=== PATIENT | female | born 1985 | race African-American/Black ===

== ENCOUNTER 2016-04-26 13:28 | Emergency (ER) | payer OTHER ==
[~2016-04-26] VITALS: Wt 70.0 kg
[~2016-04-26 13:28] MED LIST: ALBU18HF INHALATION; AZIT250T94 PO; PRED20TA PO
[2016-04-26] MEDS ORDERED: LORA-186 PO (14:30)
[2016-04-26] MEDS ORDERED: IBUP-1542 PO (14:30)
[2016-04-26] MEDS ORDERED: PHEN118L PO (14:30)
--- NOTE | 2016-04-26 14:35 | ERD ---
ER Documentation Chief Complaint Date/Time DATE: 04/26/16 TIME: 14:34 Chief Complaint cough and sore throat for the past few days. HPI This is a 31-year-old female presenting to the emergency department planing of sore throat, cough, ear pain and feeling chills for the past 2 days. Patient states that is moderate in severity. She denies any chest pain or shortness of breath. Patient states that she has not tried any medications. ROS All systems reviewed and are negative except as per history of present illness. Medications Home Meds Active Scripts Phenylephrine/Diphenhydramine (DIMETAPP COLD & CONGEST LIQUID) 118 Ml Liquid, 5 ML PO Q4, #100 Prov:MILA HOWARD PA-C 04/26/16 Loratadine* (Claritin*) 10 Mg Tablet, 10 MG PO DAILY, #20 TAB Prov:MILA HOWARD PA-C 04/26/16 Ibuprofen* (Motrin*) 600 Mg Tab, 600 MG PO Q6H Y for PAIN AND OR ELEVATED TEMP, #30 TAB Prov:MILA HOWARD PA-C 04/26/16 Albuterol Sulfate* (Ventolin HFA*) 18 Gm Hfa.aer.ad, 2 PUFF INHALATION Q4H, #1 INHALER Prov:SANTHOSH SWENSON MD 11/04/15 Prednisone* (Prednisone*) 20 Mg Tab, 40 MG PO DAILY for 4 Days, TAB Prov:SANTHOSH SWENSON MD 11/04/15 Azithromycin* (Zithromax*) 250 Mg Tablet, 250 MG PO .ZPACK DIRECTED, #6 TAB TAKE 500 MG (2 TABS) THE FIRST DAY THEN 250 MG (1 TAB) DAYS 2-5 Prov:SANTHOSH SWENSON MD 11/04/15 Allergies Allergies: Coded Allergies: No Known Drug Allergies (Verified Allergy, Mild, 01/18/14) PMhx/Soc History of Surgery: No Anesthesia Reaction: No Hx Neurological Disorder: No Hx Respiratory Disorders: Yes (asthma) Hx Cardiac Disorders: No Hx Psychiatric Problems: No Hx Miscellaneous Medical Probl: No Hx Alcohol Use: No Hx Substance Use: No Hx Tobacco Use: No Physical Exam Vitals Vital Signs Date Time Temp Pulse Resp B/P Pulse Ox O2 Delivery O2 Flow Rate FiO2 04/26/16 13:37 98.8 85 20 146/62 98 Physical Exam GENERAL: well-developed/well-nourished, in no apparent distress, non-toxic appearing HEAD: NC/AT, no swelling noted in frontal or maxillary areas EARS: bilateral tympanic membrane is intact without erythema or effusion NARES: Rhinorrhea THROAT: oropharynx nonerythematous without exudates, no tonsil enlargement, post nasal drip EYES: Conjunctiva normal NECK: Supple, no lymphadenopathy PULM: CTA bilaterally, no rales, rhonchi, or wheezing heard CV: Normal S1S2, RRR, good capillary refill GI: Soft, non-distended, normal bowel sounds, non-tender BACK: No midline tenderness, no masses EXT No clubbing, cyanosis, or edema NEURO: Alert and Orientated SKIN: Intact, normal turgor PSYCH: Normal mood and mentation Procedures/MDM MDM: 31-year-old female presents to the ER with upper respiratory infection, which is most likely viral. My clinical suspicion is low suspicion for pneumonia , strep pharyngitis, or pulmonary emergencies due to physical examination. Patient's lungs were clear on examination. Centor criteria negative DISPOSITION: hemodynamically stable for discharge. Prescription for ibuprofen, Claritin and Dimetapp was given to patient, discussed to return to the ED if not improving as expected or follow-up with a primary care physician. Patient understood and agreed with this plan. Departure Diagnosis: Primary Impression: URI, acute Condition: Stable Patient Instructions: When You Have a Sore Throat, Self-Care for Sore Throats, Uri, Viral, No Abx (Adult) Referrals: ALIVIA COOK MD (PCP) Additional Instructions: FOLLOW UP WITH YOUR PRIMARY CARE PHYSICIAN TOMORROW.Return to this facility if you are not improving as expected. MILA HOWARD PA-C Apr 26, 2016 14:35
== END 2016-04-26 14:28 | disposition home or self-care (01) ==
LOC: E/R 13:28
DX: J06.9 Acute upper respiratory infection, unspecified (principal); J45.909 Unspecified asthma, uncomplicated
CPT/HCPCS: 99283

== ENCOUNTER 2016-04-30 04:56 | Emergency (ER) | payer OTHER ==
[~2016-04-30] VITALS: Ht 152.4 cm; Wt 77.8 kg
[~2016-04-30 04:56] MED LIST changes: +IBUP-1542 PO; +LORA-186 PO; +PHEN118L PO
[2016-04-30 05:01] VITALS: Ht 152.4 cm; Wt 77.8 kg
[2016-04-30] MEDS ORDERED: IBUPROFEN 800 MG TAB PO ONE (06:30)
--- NOTE | 2016-04-30 06:42 | RADRPT ---
PROCEDURE: CHEST - 1 VIEW CLINICAL INDICATION: 31-year-old female with cough and fever. TECHNIQUE: A single frontal PA erect view of the chest was performed. The images were reviewed on a PACS workstation. COMPARISON: Chest x-ray November 04, 2015. FINDINGS: The cardiomediastinal silhouette has a normal appearance. There is no evidence for an infiltrate. T he pulmonary vascularity is within normal limits. There is no evidence for pneumothorax or pneumomed iastinum. The osseous structures are intact. IMPRESSION: No evidence for active cardiopulmonary disease. .Usama Combs MD, MD Date Time Electronically viewed and signed by .Usama Combs MD, on 04/30/2016 06:42 .M/
--- NOTE | 2016-04-30 06:49 | ERD ---
ER Documentation Chief Complaint Date/Time DATE: 04/30/16 TIME: 06:45 Chief Complaint flu like symptoms- body aches,cough w/ chest congestion, fever HPI This is a 31-year-old female presents to the emergency department today complaining of body aches, cough with congestion, fever, headache for the past 2 days. Patient states she took ibuprofen yesterday. States she was here a week ago with similar symptoms but got better and then got worse again. Denies any nausea vomiting diarrhea. ROS All systems reviewed and are negative except as per history of present illness. Medications Home Meds Active Scripts Acetaminophen* (Tylophen*) 500 Mg Capsule, 1 CAP PO Q6H Y for PAIN AND OR ELEVATED TEMP, #30 CAP Prov:MARGIE FIGUEROA PA-C 04/30/16 Ibuprofen* (Motrin*) 600 Mg Tab, 600 MG PO Q6, #30 TAB Prov:MARGIE FIGUEROA PA-C 04/30/16 Guaifenesin-Dextromethorphan* (Robitussin* DM) 100MG/10MG/5ML Syrup, 10 ML PO Q6H Y for COUGH for 5 Days, ML Prov:MARGIE FIGUEROA PA-C 04/30/16 Oseltamivir Phosphate* (Tamiflu*) 75 Mg Capsule, 75 MG PO BID for 5 Days, CAP Prov:MARGIE FIGUEROA PA-C 04/30/16 Phenylephrine/Diphenhydramine (DIMETAPP COLD & CONGEST LIQUID) 118 Ml Liquid, 5 ML PO Q4, #100 Prov:MILA HOWARD PA-C 04/26/16 Loratadine* (Claritin*) 10 Mg Tablet, 10 MG PO DAILY, #20 TAB Prov:MILA HOWARD PA-C 04/26/16 Ibuprofen* (Motrin*) 600 Mg Tab, 600 MG PO Q6H Y for PAIN AND OR ELEVATED TEMP, #30 TAB Prov:MILA HOWARD PA-C 04/26/16 Albuterol Sulfate* (Ventolin HFA*) 18 Gm Hfa.aer.ad, 2 PUFF INHALATION Q4H, #1 INHALER Prov:SANTHOSH SWENSON MD 11/04/15 Prednisone* (Prednisone*) 20 Mg Tab, 40 MG PO DAILY for 4 Days, TAB Prov:SANTHOSH SWENSON MD 11/04/15 Azithromycin* (Zithromax*) 250 Mg Tablet, 250 MG PO .KOLBY DIRECTED, #6 TAB TAKE 500 MG (2 TABS) THE FIRST DAY THEN 250 MG (1 TAB) DAYS 2-5 Prov:SANTHOSH SWENSON MD 11/04/15 Allergies Allergies: Coded Allergies: No Known Drug Allergies (Verified Allergy, Mild, 01/18/14) PMhx/Soc History of Surgery: No Anesthesia Reaction: No Hx Neurological Disorder: No Hx Respiratory Disorders: Yes (asthma, bronchitis) Hx Cardiac Disorders: No Hx Psychiatric Problems: No Hx Miscellaneous Medical Probl: No Hx Alcohol Use: No Hx Substance Use: No Hx Tobacco Use: No Physical Exam Vitals Vital Signs Date Time Temp Pulse Resp B/P Pulse Ox O2 Delivery O2 Flow Rate FiO2 04/30/16 05:01 100.7 114 20 126/76 100 Physical Exam Const: No acute distress Head: Atraumatic Eyes: Normal Conjunctiva ENT: ears TMs normal. Nose no drainage. Throat no erythema no exudate. Neck: Full range of motion..~ No meningismus. Resp: Clear to auscultation bilaterally no absent breath sounds. No wheezing. Cardio: Regular rate and rhythm, no murmurs Abd: Soft, non tender, non distended. Normal bowel sounds Skin: No petechiae or rashes Back: No midline or flank tenderness Ext: No cyanosis, or edema Neur: Awake and alert Psych: Normal Mood and Affect Results 24 hrs Current Medications Medications (Trade) Dose Ordered Sig/Tina Route PRN Reason Start Time Stop Time Status Last Admin Dose Admin Ibuprofen (Motrin) 800 mg ONCE ONCE PO 04/30/16 06:30 04/30/16 06:31 DC 04/30/16 06:42 DIAGNOSTIC IMAGING REPORT Patient: TONY KNOWLES : 1985 Age: 31 Sex: F MR #: [id number] DOS: 04/30/16 0000 Ordering MD: MARGIE FIGUEROA PA-C Location: [facility] Room/Bed: PROCEDURE: CHEST - 1 VIEW CLINICAL INDICATION: 31-year-old female with cough and fever. TECHNIQUE: A single frontal PA erect view of the chest was performed. The images were reviewed on a PACS workstation. COMPARISON: Chest x-ray November 04, 2015. FINDINGS: The cardiomediastinal silhouette has a normal appearance. There is no evidence for an infiltrate. The pulmonary vascularity is within normal limits. There is no evidence for pneumothorax or pneumomediastinum. The osseous structures are intact. IMPRESSION: No evidence for active cardiopulmonary disease. .Usama Combs MD, MD Date Time Electronically viewed and signed by .Usama Combs MD, on 04/30/2016 06:42 .M/ CC: MARGIE FIGUEROA-C Procedures/MDM This is a 31-year-old female who presents the emergency department today with flulike symptoms for the past couple of days. Patient was tachycardic and had a low-grade temperature 100.7 here in the emergency department. Patient indicates she does have a history of asthma bronchitis and therefore I did obtain a chest x-ray given that this is her second visit in the past several days. Patient was seen here in the emergency department on April 26 and diagnosed with a URI. She was given a prescription for Dimetapp Claritin and ibuprofen. Chest x-ray is negative low suspicion for pneumonia, PE, pleural effusion, abscess, pneumothorax. I have low suspicion for strep pharyngitis, peritonsillar abscess, retropharyngeal abscess, otitis media, PNA, sinusitis, abscess, meningitis, sepsis, or other acute infectious bacterial process. She will be given a prescription for Tamiflu given that her symptoms have changed patient states she initially got better and then got worse again. I will also give her a prescription for Robitussin, Motrin and Tylenol At this time the patient is stable for discharge and outpatient management. Patient should follow up with their PCP in the next 1-2 days. They may return to the emergency department sooner for any persistent or worsening of symptoms. Patient understood and agreed with the plan. Departure Diagnosis: Primary Impression: Influenza-like symptoms Condition: Fair PROUSE,MARGIE M. PA-C Apr 30, 2016 06:49
[2016-04-30] MEDS ORDERED: OSLT75C PO (07:23)
[2016-04-30] MEDS ORDERED: UDROBDM PO (07:24)
[2016-04-30] MEDS ORDERED: IBUP-1542 PO (07:24)
[2016-04-30] MEDS ORDERED: ACET500C5 PO (07:24)
[2016-04-30 07:41] VITALS: TEMP 97.9
== END 2016-04-30 07:42 | disposition home or self-care (01) ==
LOC: FTE 04:56
DX: R05 Cough (principal); R50.9 Fever, unspecified; R09.89 Other specified symptoms and signs involving the circulatory and respiratory systems; R51 Headache; J45.909 Unspecified asthma, uncomplicated
CPT/HCPCS: 71010; Z7502; Z7610

== ENCOUNTER 2016-05-17 11:02 | Emergency (ER) | payer OTHER ==
[~2016-05-17] VITALS: Wt 75.0 kg
[~2016-05-17 11:02] MED LIST changes: +ACET500C5 PO; +OSLT75C PO; +UDROBDM PO
--- NOTE | 2016-05-17 14:35 | ERD ---
ER Documentation Chief Complaint Date/Time DATE: 05/17/16 TIME: 14:34 Chief Complaint LEFT LITTLE TOE PAIN FROM INJURY 3 DAYS. HPI 31-year-old female presents with left fifth toe pain from tripping and falling 3 days ago. She has sharp, achy pain, localized to the left fifth toe, worse with any movement and better at rest. Denies any other injuries. ROS All systems reviewed and are negative except as per history of present illness. Medications Home Meds Active Scripts Naproxen* (Naprosyn*) 500 Mg Tablet, 500 MG PO BID Y for PAIN AND/OR INFLAMMATION, #30 TAB Prov:SHANTELLE LENTZ PA-C 05/17/16 Acetaminophen* (Tylophen*) 500 Mg Capsule, 1 CAP PO Q6H Y for PAIN AND OR ELEVATED TEMP, #30 CAP Prov:MARGIE FIGUEROA PA-C 04/30/16 Ibuprofen* (Motrin*) 600 Mg Tab, 600 MG PO Q6, #30 TAB Prov:MARGIE FIGUEROA PA-C 04/30/16 Guaifenesin-Dextromethorphan* (Robitussin* DM) 100MG/10MG/5ML Syrup, 10 ML PO Q6H Y for COUGH for 5 Days, ML Prov:MARGIE FIGUEROA PA-C 04/30/16 Oseltamivir Phosphate* (Tamiflu*) 75 Mg Capsule, 75 MG PO BID for 5 Days, CAP Prov:MARGIE FIGUEROA PA-C 04/30/16 Phenylephrine/Diphenhydramine (DIMETAPP COLD & CONGEST LIQUID) 118 Ml Liquid, 5 ML PO Q4, #100 Prov:MILA HOWARD PA-C 04/26/16 Loratadine* (Claritin*) 10 Mg Tablet, 10 MG PO DAILY, #20 TAB Prov:MILA HOWARD PA-C 04/26/16 Ibuprofen* (Motrin*) 600 Mg Tab, 600 MG PO Q6H Y for PAIN AND OR ELEVATED TEMP, #30 TAB Prov:MILA HOWARDC 04/26/16 Albuterol Sulfate* (Ventolin HFA*) 18 Gm Hfa.aer.ad, 2 PUFF INHALATION Q4H, #1 INHALER Prov:SANTHOSH SWENSON MD 11/04/15 Prednisone* (Prednisone*) 20 Mg Tab, 40 MG PO DAILY for 4 Days, TAB Prov:SANTHOSH SWENSON MD 11/04/15 Azithromycin* (Zithromax*) 250 Mg Tablet, 250 MG PO .ZPACK DIRECTED, #6 TAB TAKE 500 MG (2 TABS) THE FIRST DAY THEN 250 MG (1 TAB) DAYS 2-5 Prov:SANTHOSH SWENSON MD 11/04/15 Allergies Allergies: Coded Allergies: No Known Drug Allergies (Verified Allergy, Mild, 05/17/16) PMhx/Soc Medical and Surgical Hx: pt denies Surgical Hx History of Surgery: No Anesthesia Reaction: No Hx Neurological Disorder: No Hx Respiratory Disorders: Yes (Asthma, bronchitis) Hx Cardiac Disorders: No Hx Psychiatric Problems: No Hx Miscellaneous Medical Probl: No Hx Alcohol Use: No Hx Substance Use: No Hx Tobacco Use: No Smoking Status: Never smoker Physical Exam Vitals Vital Signs Date Time Temp Pulse Resp B/P Pulse Ox O2 Delivery O2 Flow Rate FiO2 05/17/16 11:07 98.8 92 21 122/52 99 Physical Exam General: Well-developed, well-nourished. The patient appears in no acute distress. HEENT: Head is normocephalic, atraumatic. No scleral icterus. Neck: Supple. Nontender. Lungs: Clear to auscultation. Normal air movement. Heart: Regular rate and rhythm. S1 and S2 are normal. No murmurs, gallops, or rubs. Abdomen: Nondistended. Extremities: Left fifth pinky toe sharp, has generalized tenderness, no bony deformities. Neurologic: Alert and oriented 3. No focal deficits. Normal speech and gait. Skin: Normal turgor. No rash or lesions. Results 24 hrs PROCEDURE: Three-view fifth digit CLINICAL INDICATION: Trauma fifth digit pain. TECHNIQUE: AP, oblique, lateral views of the fifth toe COMPARISON: None FINDINGS: No fracture or dislocation. No periarticular soft tissue swelling. IMPRESSION: No fracture or dislocation. RPTAT:AAJJ J Port, Physician Date Time Electronically viewed and signed by Physician Quinn on 05/17/2016 14:44 SHELLI/ Procedures/MDM ED course: Patient's left foot was placed in a postop shoe. Her fifth pinky toe , due to size limitations is not able to be maryam taped. MDM: 31-year-old female presents with left fifth pinky toe pain after a ground- level fall 3 days ago, consistent with a toe sprain. Patient's examination does not show any bony deformities, laceration or dislocation. X-ray is also unremarkable. We attempted to maryam tape her toe however due to the size limitation tolerate this, she was placed in a post op shoe. Departure Diagnosis: Primary Impression: Injury of toe Condition: SHANTELLE Rico PA-C May 17, 2016 14:35
--- NOTE | 2016-05-17 14:44 | RADRPT ---
PROCEDURE: Three-view fifth digit CLINICAL INDICATION: Trauma fifth digit pain. TECHNIQUE: AP, oblique, lateral views of the fifth toe COMPARISON: None FINDINGS: No fracture or dislocation. No periarticular soft tissue swelling. IMPRESSION: No fracture or dislocation. RPTAT:AAJJ Miki David Physician Date Time Electronically viewed and signed by Miki David Physician on 05/17/2016 14:44 SHELLI/
[2016-05-17] MEDS ORDERED: NAPR-260 PO (14:53)
== END 2016-05-17 15:12 | disposition home or self-care (01) ==
LOC: FTE 11:02
DX: S99.922A Unspecified injury of left foot, initial encounter (principal); J45.909 Unspecified asthma, uncomplicated; W01.0XXA Fall on same level from slipping, tripping and stumbling without subsequent striking against object, initial encounter; Y92.9 Unspecified place or not applicable
CPT/HCPCS: 73660; Z7502

== ENCOUNTER 2016-10-01 15:29 | Emergency (ER) | payer OTHER ==
[~2016-10-01] VITALS: Wt 75.0 kg
[~2016-10-01 15:29] MED LIST changes: +NAPR-260 PO
[2016-10-01] MEDS ORDERED: ONDANSETRON 4 MG INJ IV STA (15:51)
[2016-10-01] MEDS ORDERED: SOD CHLORIDE 0.9% 1,000 ML IV STA (15:51)
[2016-10-01] MEDS ORDERED: morphine 2 MG INJ IV STA (15:51)
--- NOTE | 2016-10-01 15:57 | ERA ---
ER Documentation Chief Complaint Date/Time DATE: 10/01/16 TIME: 15:53 Chief Complaint ABD PAIN SINCE LAST NIGHT HPI This is an otherwise healthy 31-year-old female presented with a chief complaint of abdominal pain 1 day. Patient has episode of vomiting 1 that described as food from the previous night this morning. Describes abdominal pain is crampy. Patient denies fever, diarrhea, constipation, recent unintentional weight loss, migrating pain, symptoms associated with food, new or recently changed medications, genital pain or ingestion of new or undercooked food. Patient has not taken any medications to relieve the symptoms. Denies any medical conditions, recent travel, recreational drug use, alcohol abuse, or sick contacts. Vaccination status is up-to-date. Nursing notes have been reviewed and are inconsistent with history given by the patient. ROS All systems reviewed and are negative except as per history of present illness. Medications Home Meds Active Scripts Naproxen* (Naprosyn*) 500 Mg Tablet, 500 MG PO BID Y for PAIN AND/OR INFLAMMATION, #30 TAB Prov:SHANTELLE LENTZ PA-C 05/17/16 Acetaminophen* (Tylophen*) 500 Mg Capsule, 1 CAP PO Q6H Y for PAIN AND OR ELEVATED TEMP, #30 CAP Prov:MARGIE FIGUEROA PA-C 04/30/16 Ibuprofen* (Motrin*) 600 Mg Tab, 600 MG PO Q6, #30 TAB Prov:MARGIE FIGUEROA PA-C 04/30/16 Guaifenesin-Dextromethorphan* (Robitussin* DM) 100MG/10MG/5ML Syrup, 10 ML PO Q6H Y for COUGH for 5 Days, ML Prov:MARGIE FIGUEROA PA-C 04/30/16 Oseltamivir Phosphate* (Tamiflu*) 75 Mg Capsule, 75 MG PO BID for 5 Days, CAP Prov:MARGIE FIGUEROA PA-C 04/30/16 Phenylephrine/Diphenhydramine (DIMETAPP COLD & CONGEST LIQUID) 118 Ml Liquid, 5 ML PO Q4, #100 Prov:MILA HOWARD PA-C 04/26/16 Loratadine* (Claritin*) 10 Mg Tablet, 10 MG PO DAILY, #20 TAB Prov:MILA HOWARD PA-C 04/26/16 Ibuprofen* (Motrin*) 600 Mg Tab, 600 MG PO Q6H Y for PAIN AND OR ELEVATED TEMP, #30 TAB Prov:MILA HOWARD PA-C 04/26/16 Albuterol Sulfate* (Ventolin HFA*) 18 Gm Hfa.aer.ad, 2 PUFF INHALATION Q4H, #1 INHALER Prov:SANTHOSH SWENSON MD 11/04/15 Prednisone* (Prednisone*) 20 Mg Tab, 40 MG PO DAILY for 4 Days, TAB Prov:SANTHOSH SWENSON MD 11/04/15 Azithromycin* (Zithromax*) 250 Mg Tablet, 250 MG PO .ZPACK DIRECTED, #6 TAB TAKE 500 MG (2 TABS) THE FIRST DAY THEN 250 MG (1 TAB) DAYS 2-5 Prov:SANTHOSH SWENSON MD 11/04/15 Allergies Allergies: Coded Allergies: No Known Drug Allergies (Verified Allergy, Mild, 05/17/16) PMhx/Soc History of Surgery: No Anesthesia Reaction: No Hx Neurological Disorder: No Hx Respiratory Disorders: Yes (Asthma, bronchitis) Hx Cardiac Disorders: No Hx Psychiatric Problems: No Hx Miscellaneous Medical Probl: No Hx Alcohol Use: No Hx Substance Use: No Hx Tobacco Use: No Smoking Status: Never smoker Physical Exam Vitals Vital Signs Date Time Temp Pulse Resp B/P Pulse Ox O2 Delivery O2 Flow Rate FiO2 10/01/16 15:33 98.9 78 18 120/63 99 Physical Exam Const: Well-appearing 31-year-old female in no acute distress. Head: Atraumatic Eyes: Normal Conjunctiva. PERRLA, EOMI bilaterally. ENT: Normal External Ears, Nose and Mouth. Neck: Full range of motion..~ No meningismus. Resp: Clear to auscultation bilaterally Cardio: Regular rate and rhythm, no murmurs. Cap refill less than 2 seconds. Radial posterior tibial pulses 2+ bilaterally. Abd: Moderate tenderness in the right lower quadrant. Soft, non tender, non distended. Normal bowel sounds Skin: No petechiae or rashes Back: No midline or flank tenderness Ext: No cyanosis, or edema Neur: Awake and alert. Neurovascularly intact bilaterally. Psych: Normal Mood and Affect Result Diagram: 10/01/16 1616 10/01/16 1616 Results 24 hrs Laboratory Tests Test 10/01/16 16:16 White Blood Count 7.310^3/ul Red Blood Count 4.9710^6/ul Hemoglobin 13.4g/dl Hematocrit 39.2% Mean Corpuscular Volume 78.9fl Mean Corpuscular Hemoglobin 27.0pg Mean Corpuscular Hemoglobin Concent 34.2g/dl Red Cell Distribution Width 12.4% Platelet Count 19463^3/UL Mean Platelet Volume 10.6fl Neutrophils % 78.5% Lymphocytes % 10.7% Monocytes % 3.7% Eosinophils % 6.8% Basophils % 0.0% Nucleated Red Blood Cells % 0.0/100WBC Neutrophils # 5.710^3/ul Lymphocytes # 0.810^3/ul Monocytes # 0.310^3/ul Eosinophils # 0.510^3/ul Basophils # 0.010^3/ul Nucleated Red Blood Cells # 0.010^3/ul Prothrombin Time 12.7Sec Prothrombin Time Ratio 1.0 INR International Normalized Ratio 0.95 Activated Partial Thromboplast Time 23.7Sec Urine Color YELLOW Urine Clarity CLEAR Urine pH 8.0 Urine Specific Chavies 1.017 Urine Ketones NEGATIVEmg/dL Urine Nitrite NEGATIVEmg/dL Urine Bilirubin NEGATIVEmg/dL Urine Urobilinogen NEGATIVEmg/dL Urine Leukocyte Esterase NEGATIVELeu/ul Urine Hemoglobin NEGATIVEmg/dL Urine Glucose NEGATIVEmg/dL Urine Total Protein NEGATIVEmg/dl Sodium Level 142mmol/L Potassium Level 3.9mmol/L Chloride Level 103mmol/L Carbon Dioxide Level 26mmol/L Anion Gap 17 Blood Urea Nitrogen 11mg/dl Creatinine 0.85mg/dl Glucose Level 88mg/dl Calcium Level 8.8mg/dl Total Bilirubin 0.9mg/dl Direct Bilirubin 0.00mg/dl Indirect Bilirubin 0.9mg/dl Aspartate Amino Transf (AST/SGOT) 21IU/L Alanine Aminotransferase (ALT/SGPT) 32IU/L Alkaline Phosphatase 65IU/L Total Protein 6.9g/dl Albumin 4.0g/dl Globulin 2.90g/dl Albumin/Globulin Ratio 1.37 Lipase 67U/L Current Medications Medications (Trade) Dose Ordered Sig/Tina Route PRN Reason Start Time Stop Time Status Last Admin Dose Admin Sodium Chloride (NS) 1,000 ml @ 1,000 mls/hr Q1H STAT IV 10/01/16 15:51 10/01/16 16:50 DC 10/01/16 16:24 Morphine Sulfate (morphine) 2 mg ONCE STAT IV 10/01/16 15:51 10/01/16 15:54 DC 10/01/16 16:29 Ondansetron HCl (Zofran Inj) 4 mg ONCE STAT IV 10/01/16 15:51 10/01/16 15:54 DC 10/01/16 16:29 Procedures/MDM This is an obese but otherwise healthy -[place] 31-year-old female presented with a chief complaint of abdominal pain 1 day with episode of vomiting this morning 1 as described in history and physical examination. Labs were ordered including CBC, CMP, lipase, urinalysis, urine . Patient was given 1 L normal saline over 1 hour, 2 mg morphine IV and 4 mg of Zofran IV. Patient had adequate relief of symptoms. Urine test was negative. Due to maximum tenderness in the RLQ, CT scan was ordered. 1. Findings which may represent into colitis. The possibility of an ileus should also be considered. 2. No CT evidence of appendicitis as the normal appendix is identified. 3. Distended and fluid-filled gastric lumen. I have presented the case and review the CT findings with my attending Dr. Lopez who has suggested discharging the patient home with instructions for clear fluid diet 2-3 days then slow transition to more solid foods. I discussed this with the patient who verbally has acknowledged that she understands and agrees to the plan of management. Patient states that she is feeling much better and is able to go home. At this time of little suspicion for infectious etiologies, appendicitis or other acute abdomen. Patient's vitals are stable and her current condition is appropriate for discharge. Patient will be discharged with discharge instructions and return precautions. Departure Diagnosis: Primary Impression: Colitis Condition: Stable Additional Instructions: Follow up with your PCP within the next 1-3 days for a more thorough evaluation and a possible referral to a specialist. Clear fluids only for the next few days and transition to more solid foods as discussed. Return the the emergency department immediately if symptoms worsen or change. If you have any questions regarding medications, ask your pharmacist or us before you leave. If any adverse reactions occur while taking your medications, discontinue the treatment and return to the emergency department immediately. Take your medications as directed, and complete the entire course of treatment. ISIDRA CARDENAS PA-C Oct 01, 2016 15:57
[2016-10-01 16:40] LABS: EOSINOPHILS # 0.5 10^3/ul (0.0-0.5); EOSINOPHILS % 6.8 % (0.0-7.0); HEMATOCRIT 39.2 % (37.0-47.0); HEMOGLOBIN 13.4 g/dl (12.0-16.0); LYMPHOCYTES # 0.8 10^3/ul (0.8-2.9); LYMPHOCYTES % 10.7 % (15.0-51.0); MEAN CORPUSCULAR HGB CONC 34.2 g/dl (32.0-37.0); MEAN CORPUSCULAR VOLUME 78.9 fl (82.0-101.0); MEAN PLATELET VOLUME 10.6 fl (7.4-10.4); MONOCYTE # 0.3 10^3/ul (0.3-0.9); MONOCYTES % 3.7 % (0.0-11.0); NEUTROPHIL # 5.7 10^3/ul (1.6-7.5); NEUTROPHILS % 78.5 % (39.0-77.0); PLATELET COUNT 245 10^3/UL (140-415); RED BLOOD COUNT 4.97 10^6/ul (4.20-5.40); RED CELL DISTRIBUTION WIDTH 12.4 % (11.5-14.5); WHITE BLOOD COUNT 7.3 10^3/ul (4.8-10.8)
[2016-10-01 16:48] LABS: ADD UMIC NO; UR ASCORBIC ACID NEGATIVE (NEGATIVE); UR BILIRUBIN (Dip) NEGATIVE (NEGATIVE); UR BLOOD (Dip) NEGATIVE (NEGATIVE); UR CLARITY CLEAR (CLEAR); UR COLOR YELLOW (YELLOW); UR GLUCOSE (Dip) NEGATIVE (NEGATIVE); UR KETONES (Dip) NEGATIVE (NEGATIVE); UR LEUKOCYTE ESTERASE (Dip) NEGATIVE Leu/ul (NEGATIVE); UR NITRITE (Dip) NEGATIVE (NEGATIVE); UR SPECIFIC GRAVITY (Dip) 1.017 (1.003-1.030); UR TOTAL PROTEIN (Dip) NEGATIVE (NEGATIVE); UR UROBILINOGEN (Dip) NEGATIVE (NEGATIVE)
[2016-10-01 16:59] LABS: ALBUMIN/GLOBULIN RATIO 1.37; BILIRUBIN,INDIRECT 0.9 mg/dl (0-1.1); BILIRUBIN,TOTAL 0.9 mg/dl (0.2-1.3); CALCIUM 8.8 mg/dl (8.4-10.2); CREATININE 0.85 mg/dl (0.44-1.00); POTASSIUM 3.9 mmol/L (3.5-5.1); TOTAL PROTEIN 6.9 g/dl (6.1-8.1)
[2016-10-01 17:04] LABS: INR 0.95; PROTIME 12.7 Sec (12.2-14.2)
[2016-10-01 17:05] LABS: PARTIAL THROMBOPLASTIN TIME 23.7 Sec (25.0-35.0)
--- NOTE | 2016-10-01 18:06 | RADRPT ---
PROCEDURE: CT abdomen and pelvis without IV contrast. CLINICAL INDICATION: Abdominal and right lower quadrant pain TECHNIQUE: CT scan of the abdomen and pelvis without contrast was performed on the [place] volumetric [address] scanner. The patient was scanned without intravenous contrast. Coronal and sagittal refo rmatted images were obtained from the axial source images. The CTDI vol is 11.25 mGy and the DLP is 610.88 mGy-cm. COMPARISON: None. FINDINGS: CT abdomen: The lung bases are clear. The heart size is not enlarged and is without pericardial thickening or e ffusion. The liver is normal in size and density and is without focal mass or intrahepatic biliary dilatation . The spleen is normal in size and homogeneous in density. The gastric lumen is distended and flui d-filled. The pancreas as visualized is normal. The gallbladder and biliary tree are unremarkable a nd there is no evidence for common bile duct dilatation. The adrenal glands are symmetric and alexander l. The kidneys are symmetrically unremarkable as well. No renal calculus or obstructive uropathy o r mass lesion is seen. The aorta is of normal in caliber. There is no retroperitoneal lymphadenopathy. The pedro pablo hepatis region is clear. The small bowel is mildly distended and fluid-filled. The right hemicolon is also fluid-filled. The remainder of the large bowel is stool-filled. The mesentery is unremarkable in a ppearance. The normal appendix is identified. CT pelvis: The pelvic organs are normal. The pelvic sidewalls and inguinal regions are clear. No pelvic mass, lymphadenopathy, or free fluid is seen. No acute inflammation is seen. The urinary bladder is wit hin normal limits. The surrounding osseous structures are unremarkable. No osteolytic or osteoblastic lesion is detect ed. IMPRESSION: 1. Findings which may represent into colitis. The possibility of an ileus should also be considere d. 2. No CT evidence of appendicitis as the normal appendix is identified. 3. Distended and fluid-filled gastric lumen. RPTAT: HPNM Physician Favio Date Time Electronically viewed and signed by Physician Favio on 10/01/2016 18:06 /
[2016-10-01 19:13] VITALS: BP 105/59; PULSE 62; RESP 18; TEMP 98
== END 2016-10-01 19:13 | disposition home or self-care (01) ==
LOC: FTE 15:29
DX: K52.9 Noninfective gastroenteritis and colitis, unspecified (principal); J45.909 Unspecified asthma, uncomplicated; E66.9 Obesity, unspecified
CPT/HCPCS: 74176; 80053; 81003; 83690; 85025; 85610; 85730; J2270; J2405; J7030; 36415; 96374; 96375

== ENCOUNTER 2016-10-06 17:20 | Emergency (ER) | payer OTHER ==
[~2016-10-06] VITALS: Ht 160 cm; Wt 78.0 kg
[2016-10-06 17:26] VITALS: Ht 160 cm; Wt 78.0 kg
[2016-10-06] MEDS ORDERED: SOD CHLORIDE 0.9% 1,000 ML IV STA (18:06)
[2016-10-06] MEDS ORDERED: ONDANSETRON 4 MG INJ IV STA (18:06)
[2016-10-06] MEDS ORDERED: HYDROmorphONE 1 MG/ML SYG IV STA (18:06)
[2016-10-06] MEDS ORDERED: IOHEXOL 300MG/ML 150 ML BTL ONE (18:50)
[2016-10-06] MEDS ORDERED: SOD CHLORIDE 0.9% 100 ML ONE (18:50)
[2016-10-06 19:04] LABS: BASOPHILS % 0.6 % (0.0-2.0); EOSINOPHILS # 0.5 10^3/ul (0.0-0.5); EOSINOPHILS % 10.3 % (0.0-7.0); HEMATOCRIT 36.2 % (37.0-47.0); HEMOGLOBIN 12.6 g/dl (12.0-16.0); LYMPHOCYTES # 2.2 10^3/ul (0.8-2.9); LYMPHOCYTES % 44.5 % (15.0-51.0); MEAN CORPUSCULAR HEMOGLOBIN 27.4 pg (29.0-33.0); MEAN CORPUSCULAR HGB CONC 34.8 g/dl (32.0-37.0); MEAN CORPUSCULAR VOLUME 78.7 fl (82.0-101.0); MEAN PLATELET VOLUME 10.8 fl (7.4-10.4); MONOCYTE # 0.4 10^3/ul (0.3-0.9); NEUTROPHIL # 1.9 10^3/ul (1.6-7.5); NEUTROPHILS % 37.4 % (39.0-77.0); PLATELET COUNT 231 10^3/UL (140-415); RED CELL DISTRIBUTION WIDTH 12.2 % (11.5-14.5)
[2016-10-06 19:24] LABS: ALBUMIN 3.5 g/dl (3.3-4.9); ALBUMIN/GLOBULIN RATIO 1.12; BILIRUBIN,INDIRECT 0.4 mg/dl (0-1.1); BILIRUBIN,TOTAL 0.4 mg/dl (0.2-1.3); CREATININE 0.87 mg/dl (0.44-1.00); POTASSIUM 3.9 mmol/L (3.5-5.1); TOTAL PROTEIN 6.6 g/dl (6.1-8.1)
--- NOTE | 2016-10-06 19:24 | RADRPT ---
PROCEDURE: CT abdomen and pelvis with contrast. CLINICAL INDICATION: Abdominal pain. TECHNIQUE: CT scan of the abdomen and pelvis with contrast was performed after the uneventful intrav enous administration of 100 cc of Omnipaque-300. Coronal and sagittal reformatted images were obtain ed from the axial source images. The total exam CTDI equals 10.9 mGy and the total exam DLP equals 5 93.75 mGy-cm. One or more of the following dose reduction techniques were used: - Automated exposure control. - Adjustment of the mA and/or kV according to patient size. - Use of iterative reconstruction technique. COMPARISON: CT dated 10/01/2016. FINDINGS: Visualized lower thorax: The visualized lung bases are clear. The visualized heart is unremarkable. Hepatobiliary system and spleen: The liver is normal in size and density with no focal hepatic lesi on identified. There is no intra or extrahepatic biliary ductal dilatation. The gallbladder is unrem arkable. The spleen is unremarkable. The pancreas is unremarkable. Adrenal glands and genitourinary system: The adrenal glands are unremarkable. There are no renal ma sses or hydronephrosis. The urinary bladder is unremarkable. There is a 1.4 cm left ovarian corpus luteal cyst. The uterus and right adnexa are unremarkable. Gastrointestinal system: The stomach and small bowel are unremarkable. There is no bowel wall thick ening or evidence of obstruction. The appendix is in the right lower quadrant and is unremarkable. Peritoneum, vascular system, lymphatics: There is no free intraperitoneal air or free fluid. There is no mesenteric or retroperitoneal adenopathy. The aorta is nonaneurysmal. There is a small umbilic al hernia containing a loop of nonobstructed small bowel. Musculoskeletal system: There are no concerning osseous lesions. IMPRESSION: 1. No acute abnormality or findings to suggest a source of the patient's symptoms. 2. Benign 1.4 cm left ovarian corpus luteal cyst. 3. Small umbilical hernia containing a loop of nonobstructed small bowel. RPTAT: HLBP .Matthew López MD, MD Date Time Electronically viewed and signed by .Matthew López MD, MD on 10/06/2016 19:24 .P/
[2016-10-06] MEDS ORDERED: HYDR-902 PO (20:12)
[2016-10-06] MEDS ORDERED: CIPR500T4 PO (20:12)
[2016-10-06] MEDS ORDERED: METR500T PO (20:12)
--- NOTE | 2016-10-06 20:18 | ERD ---
ER Documentation Chief Complaint Date/Time DATE: 10/06/16 TIME: 20:16 Chief Complaint abdominal pain was seen here on 10/01, sent by pmd HPI This is a 31-year-old female who is here for abdominal pain. She has bilateral lower quadrant pain. She says she was seen here last week and had a CAT scan that demonstrated colitis. She says she is not giving any antibiotics at discharge. She has no vomiting diarrhea no fever. She describes the pain is crampy and intermittent and mostly located in the lower left adnexal region. No vaginal discharge no dysuria or heme ROS All systems reviewed and are negative except as per history of present illness. Medications Home Meds Active Scripts Metronidazole* (Flagyl*) 500 Mg Tablet, 500 MG PO TID for 5 Days, TAB Prov:JERRI RIVERA DO 10/06/16 Ciprofloxacin Hcl* (Ciprofloxacin Hcl*) 500 Mg Tablet, 500 MG PO BID for 5 Days , TAB Prov:JERRI RIVERA DO 10/06/16 Hydrocodone/Acetaminophen (Morris 10-325 Tablet) 1 Each Tablet, 1 TAB PO Q6H Y for PAIN, #12 TAB Prov:JERRI RIVERA DO 10/06/16 Naproxen* (Naprosyn*) 500 Mg Tablet, 500 MG PO BID Y for PAIN AND/OR INFLAMMATION, #30 TAB Prov:SHANTELLE LENTZ PA-C 05/17/16 Acetaminophen* (Tylophen*) 500 Mg Capsule, 1 CAP PO Q6H Y for PAIN AND OR ELEVATED TEMP, #30 CAP Prov:MARGIE FIGUEROA PA-C 04/30/16 Ibuprofen* (Motrin*) 600 Mg Tab, 600 MG PO Q6, #30 TAB Prov:MARGIE FIGUEROA PA-C 04/30/16 Guaifenesin-Dextromethorphan* (Robitussin* DM) 100MG/10MG/5ML Syrup, 10 ML PO Q6H Y for COUGH for 5 Days, ML Prov:MARGIE FIGUEROA PA-C 04/30/16 Oseltamivir Phosphate* (Tamiflu*) 75 Mg Capsule, 75 MG PO BID for 5 Days, CAP Prov:MARGIE FIGUEROA PA-C 04/30/16 Phenylephrine/Diphenhydramine (DIMETAPP COLD & CONGEST LIQUID) 118 Ml Liquid, 5 ML PO Q4, #100 Prov:MILA HOWARD PA-C 04/26/16 Loratadine* (Claritin*) 10 Mg Tablet, 10 MG PO DAILY, #20 TAB Prov:MILA HOWARD PA-C 04/26/16 Ibuprofen* (Motrin*) 600 Mg Tab, 600 MG PO Q6H Y for PAIN AND OR ELEVATED TEMP, #30 TAB Prov:MILA HOWARD PA-C 04/26/16 Albuterol Sulfate* (Ventolin HFA*) 18 Gm Hfa.aer.ad, 2 PUFF INHALATION Q4H, #1 INHALER Prov:SANTHOSH SWENSON MD 11/04/15 Prednisone* (Prednisone*) 20 Mg Tab, 40 MG PO DAILY for 4 Days, TAB Prov:SANTHOSH SWENSON MD 11/04/15 Azithromycin* (Zithromax*) 250 Mg Tablet, 250 MG PO .DeliaPACK DIRECTED, #6 TAB TAKE 500 MG (2 TABS) THE FIRST DAY THEN 250 MG (1 TAB) DAYS 2-5 Prov:SANTHOSH SWENSON MD 11/04/15 Allergies Allergies: Coded Allergies: No Known Drug Allergies (Verified Allergy, Mild, 05/17/16) PMhx/Soc History of Surgery: No Anesthesia Reaction: No Hx Neurological Disorder: No Hx Respiratory Disorders: Yes (Asthma, bronchitis) Hx Cardiac Disorders: No Hx Psychiatric Problems: No Hx Miscellaneous Medical Probl: No Hx Alcohol Use: No Hx Substance Use: No Hx Tobacco Use: No Smoking Status: Never smoker FmHx Family History: No coronary disease Physical Exam Vitals Vital Signs Date Time Temp Pulse Resp B/P Pulse Ox O2 Delivery O2 Flow Rate FiO2 10/06/16 17:26 98.3 54 18 115/59 95 Physical Exam Const: Well-developed, well-nourished Head: Atraumatic, normocephalic Eyes: Normal Conjunctiva, PERRLA, EOMI, normal sclera, no nystagmus ENT: Normal External Ears, Nose and Mouth, moist mucus membranes. Neck: Full range of motion. No meningismus, no lymphadenopathy. Resp: Clear to auscultation bilaterally, no wheezing, rhonchi, rales Cardio: Regular rate and rhythm, no murmurs, S1 S2 present Abd: Soft, bilateral lower quadrant tenderness left more than right left adnexal cyst is moderate non distended. Normal bowel sounds, no guarding or rebound, no pulsitile abdominal masses or bruits Skin: No petechiae or rashes, no ecchymosis , no maculopapular rash Back: No midline or flank tenderness Ext: No cyanosis, or edema, FROM x 4, normal inspection, neurovascularly intact x 4 Neur: Awake and alert, STR 5/5 x 4, sensation intact x 4, no focal findings, cerebellum intact Psych: Normal Mood and Affect Result Diagram: 10/06/16184010/06/161840 Results 24 hrs Laboratory Tests Test 10/06/16 18:41 White Blood Count 5.010^3/ul Red Blood Count 4.6010^6/ul Hemoglobin 12.6g/dl Hematocrit 36.2% Mean Corpuscular Volume 78.7fl Mean Corpuscular Hemoglobin 27.4pg Mean Corpuscular Hemoglobin Concent 34.8g/dl Red Cell Distribution Width 12.2% Platelet Count 69719^3/UL Mean Platelet Volume 10.8fl Neutrophils % 37.4% Lymphocytes % 44.5% Monocytes % 7.0% Eosinophils % 10.3% Basophils % 0.6% Nucleated Red Blood Cells % 0.0/100WBC Neutrophils # 1.910^3/ul Lymphocytes # 2.210^3/ul Monocytes # 0.410^3/ul Eosinophils # 0.510^3/ul Basophils # 0.010^3/ul Nucleated Red Blood Cells # 0.010^3/ul Sodium Level 141mmol/L Potassium Level 3.9mmol/L Chloride Level 102mmol/L Carbon Dioxide Level 27mmol/L Anion Gap 16 Blood Urea Nitrogen 9mg/dl Creatinine 0.87mg/dl Glucose Level 83mg/dl Calcium Level 9.0mg/dl Total Bilirubin 0.4mg/dl Direct Bilirubin 0.00mg/dl Indirect Bilirubin 0.4mg/dl Aspartate Amino Transf (AST/SGOT) 20IU/L Alanine Aminotransferase (ALT/SGPT) 29IU/L Alkaline Phosphatase 73IU/L Total Protein 6.6g/dl Albumin 3.5g/dl Globulin 3.10g/dl Albumin/Globulin Ratio 1.12 Lipase 164U/L Current Medications Medications (Trade) Dose Ordered Sig/Tian Route PRN Reason Start Time Stop Time Status Last Admin Dose Admin Sodium Chloride (NS) 1,000 ml @ 1,000 mls/hr Q1H STAT IV 10/06/16 18:06 10/06/16 19:05 DC 10/06/16 18:47 Hydromorphone HCl (Dilaudid) 1 mg ONCE STAT IV 10/06/16 18:06 10/06/16 18:08 DC 10/06/16 18:47 Ondansetron HCl (Zofran Inj) 4 mg ONCE STAT IV 10/06/16 18:06 10/06/16 18:08 DC 10/06/16 18:47 IV Flush 10 ml 10 ml STK-MED ONCE .ROUTE 10/06/16 18:50 10/06/16 18:51 DC 10/06/16 19:10 Sodium Chloride (NS) 100 ml @ ud STK-MED ONCE .ROUTE 10/06/16 18:50 10/06/16 18:51 DC 10/06/16 19:10 Iohexol (Omnipaque 300mg/ ml) 150 ml STK-MED ONCE .ROUTE 10/06/16 18:50 10/06/16 18:51 DC 10/06/16 19:10 Procedures/MDM PROCEDURE: CT abdomen and pelvis with contrast. CLINICAL INDICATION: Abdominal pain. TECHNIQUE: CT scan of the abdomen and pelvis with contrast was performed after the uneventful intravenous administration of 100 cc of Omnipaque-300. Coronal and sagittal reformatted images were obtained from the axial source images. The total exam CTDI equals 10.9 mGy and the total exam DLP equals 593.75 mGy-cm. One or more of the following dose reduction techniques were used: - Automated exposure control. - Adjustment of the mA and/or kV according to patient size. - Use of iterative reconstruction technique. COMPARISON: CT dated 10/01/2016. FINDINGS: Visualized lower thorax: The visualized lung bases are clear. The visualized heart is unremarkable. Hepatobiliary system and spleen: The liver is normal in size and density with no focal hepatic lesion identified. There is no intra or extrahepatic biliary ductal dilatation. The gallbladder is unremarkable. The spleen is unremarkable. The pancreas is unremarkable. Adrenal glands and genitourinary system: The adrenal glands are unremarkable. There are no renal masses or hydronephrosis. The urinary bladder is unremarkable. There is a 1.4 cm left ovarian corpus luteal cyst. The uterus and right adnexa are unremarkable. Gastrointestinal system: The stomach and small bowel are unremarkable. There is no bowel wall thickening or evidence of obstruction. The appendix is in the right lower quadrant and is unremarkable. Peritoneum, vascular system, lymphatics: There is no free intraperitoneal air or free fluid. There is no mesenteric or retroperitoneal adenopathy. The aorta is nonaneurysmal. There is a small umbilical hernia containing a loop of nonobstructed small bowel. Musculoskeletal system: There are no concerning osseous lesions. IMPRESSION: 1. No acute abnormality or findings to suggest a source of the patient's symptoms. 2. Benign 1.4 cm left ovarian corpus luteal cyst. 3. Small umbilical hernia containing a loop of nonobstructed small bowel. RPTAT: HLBP .Matthew López MD, MD Date Time Electronically viewed and signed by .Matthew López MD, MD on 10/06/2016 19:24 .P/ CC: JERRI RIVERA DO Patient is a left ovarian cyst. No acute process on abdominal CT no appendicitis Departure Diagnosis: Primary Impression: Ovarian cyst Laterality: left Qualified Code: N83.202 - Cyst of left ovary Additional Impression: Abdominal pain Abdominal location: lower abdomen, unspecified Qualified Code: R10.30 - Lower abdominal pain Condition: Stable Patient Instructions: Abdominal Pain, Unknown Cause, (Female), Ovarian Cyst JERRI RIVERA DO Oct 06, 2016 20:18
[2016-10-06 20:27] VITALS: BP 120/67; PULSE 60; RESP 22; TEMP 97.7
== END 2016-10-06 20:29 | disposition home or self-care (01) ==
LOC: FTE 17:20
DX: N83.202 Unspecified ovarian cyst, left side (principal); R10.31 Right lower quadrant pain; J45.909 Unspecified asthma, uncomplicated
CPT/HCPCS: 36415; 74177; 80053; 83690; 85025; 96374; 96375; J1170; J2405; J7030; Q9967; Z7502; Z7610